=== PATIENT | female | born 1985 | race Caucasian/White ===

== ENCOUNTER 2021-02-17 19:08 | Emergency (ER) | payer MEDICAID ==
[~2021-02-17] VITALS: Ht 165.1 cm; Wt 66.7 kg
[2021-02-17 19:16] VITALS: BP_SYST 114
--- NOTE | 2021-02-17 20:00 | NUR ---
Patient triaged and placed in waiting room. VSS and patient appears in no acute distress at this time. Accompanied by self , awaiting available bed, and MD notified of need for MSE.
--- NOTE | 2021-02-17 20:05 | NUR ---
Pt brought by self, A&Ox4, pt presents to ER with L knee pain for 1 month getting worse, swelling noted, difficulty walking , skin pink and warm, cap refill <3.
--- NOTE | 2021-02-17 22:00 | NUR ---
Patient to [facility] for evaluation. Side rails up. Report given to MADDIE ROSA
--- NOTE | 2021-02-17 22:07 | NUR ---
Dr. Sutton chair-side for pt walteral
[2021-02-17] MEDS ORDERED: IBUPROFEN 600 MG TABLET PO ONE (22:15)
[2021-02-17] MEDS ORDERED: HYDR-3917 PO (22:16)
[2021-02-17] MEDS ORDERED: IBUP-1969 PO (22:16)
[2021-02-17 22:35] VITALS: BP_SYST 114
--- NOTE | 2021-02-17 22:35 | NUR ---
Patient given written and verbal discharge instructions and verbalizes understanding. ER MD discussed with patient the results and treatment provided. Patient in stable condition. ID arm band removed. Rx of [place] and Motrin given. Patient educated on pain management and to follow up with PMD. Pain Scale 0/10 Opportunity for questions provided and answered. Medication side effect fact sheet provided.
== END 2021-02-17 22:35 | disposition home or self-care (01) ==
LOC: SED 19:08
DX: M23.92 Unspecified internal derangement of left knee (principal); Z79.899 Other long term (current) drug therapy
CPT/HCPCS: 73560-TC; 99283